=== PATIENT | female | born 1955 | race Caucasian/White ===

== ENCOUNTER → 2018-07-27 14:43 | Outpatient (CLI) | payer BC, SELFPAY ==
[2018-07-27 13:12] VITALS: BMI 36.6
[2018-07-27 18:04] LABS: Chlamydia Trachomatis by PCR POSITIVE (Negative); Neisserai gonorrhoeae by PCR Negative (Negative); Probe Check PASS
== END ==
PROVIDERS: Family Provider Internal Medicine; PCP Internal Medicine; Referring Provider Nurse Practitioner Women's Health; Visit Provider Nurse Practitioner Women's Health
DX: Z20.2 Contact with and (suspected) exposure to infections with a predominantly sexual mode of transmission (principal)
CPT/HCPCS: 87491; 87591

== ENCOUNTER → 2018-08-24 18:21 | Outpatient (CLI) | payer BC, SELFPAY ==
[2018-08-24 10:01] VITALS: BMI 36.6
[2018-08-24 21:34] LABS: Chlamydia Trachomatis by PCR Negative (Negative); Neisserai gonorrhoeae by PCR Negative (Negative); Probe Check PASS; Sample Adequacy Control PASS; Specimen Processing Control PASS
== END ==
PROVIDERS: Family Provider Internal Medicine; PCP Internal Medicine; Referring Provider Nurse Practitioner Women's Health; Visit Provider Nurse Practitioner Women's Health
DX: A74.9 Chlamydial infection, unspecified (principal)
CPT/HCPCS: 87491; 87591

== ENCOUNTER → 2018-08-31 07:00 | Outpatient (CLI) | payer BC, SELFPAY ==
[2018-08-24 10:01] VITALS: BMI 36.6
--- NOTE | 2018-08-31 07:00 | BI_ITS ---
MAMMOGRAPHY - BILATERAL SCREENING REASON FOR EXAM: Female, 63 years old. Routine annual screening examination. PERTINENT HISTORY: Mother with breast cancer. TECHNIQUE: Digital bilateral breast fatoumata (3D mammographic acquisition) in the CC and MLO projections. 2-D mediolateral oblique (MLO) and craniocaudad (CC) views of both breasts were obtained. CAD: Full Field Digital Mammography with Computer Added Detection was performed. COMPARISON: Comparison is made with prior examination dated April 15, 2017 and November 27, 2015. FINDINGS: Breast Composition: There are scattered areas of fibroglandular density. There are no dominant masses or suspicious calcifications. Stable appearance of the small bilateral axillary lymph nodes. No other significant abnormalities are identified. There has been no significant change since the prior study. BI/SCREEN MAMM (CAD) W/FATOUMATA BILAT IMPRESSION: Stable bilateral screening mammogram. Yearly follow-up mammogram recommended. (A) ASSESSMENT CATEGORY: BIRADS Category 2: Benign. A letter regarding these results will be sent to the patient by the facility within 30 days. Approximately 10% of breast cancers are not detected by mammography. A normal mammogram should not delay biopsy of a clinically suspicious abnormality. [id number] Electronically Signed: Edy Meza MD at 9:49 EST , Service support ,
== END ==
PROVIDERS: Family Provider Internal Medicine; PCP Internal Medicine; Referring Provider Nurse Practitioner Women's Health; Visit Provider Nurse Practitioner Women's Health
DX: Z12.31 Encounter for screening mammogram for malignant neoplasm of breast (principal); Z80.3 Family history of malignant neoplasm of breast
CPT/HCPCS: 77063; 77067

== ENCOUNTER → 2020-11-30 07:55 | Outpatient (CLI) | payer OTHER, SELFPAY ==
[2018-08-24 10:01] VITALS: BMI 36.6
--- NOTE | 2020-11-30 08:08 | BI_ITS ---
MAMMOGRAPHY - BILATERAL SCREENING 3-D TOMOSYNTHESIS REASON FOR EXAM: Female, 65 years old. Routine screening PERTINENT HISTORY: Mother with breast cancer.. TECHNIQUE: 2-D mammograms and 3-D Tomosynthesis of the breast (s) were performed. CAD was performed. COMPARISON: 08/31/18 FINDINGS: The breast composition is composed of scattered fibroglandular density. Scattered benign calcifications are seen. No dense spiculated masses or suspicious microcalcifications are identified. No architectural distortion is identified. There is no skin thickening or retraction. There has been no significant change since the prior study. BI/SCRN MAMM (CAD)W/FATOUMATA BILAT IMPRESSION: No mammographic signs of malignancy. Routine yearly mammograms recommended. ASSESSMENT CATEGORY: BIRADS Category 2: Benign. A letter regarding these results will be sent to the patient by the facility within 30 days. FOLLOW UP RECOMMENDATION: Yearly follow up mammogram recommended. (A) Approximately 10% of breast cancers are not detected by mammography. A normal mammogram should not delay biopsy of a clinically suspicious abnormality. Electronically Signed: Maycol Boswell MD at 9:02 EDT , Service support ,
== END ==
PROVIDERS: PCP Internal Medicine; Referring Provider Nurse Practitioner Women's Health; Visit Provider Nurse Practitioner Women's Health
DX: Z12.31 Encounter for screening mammogram for malignant neoplasm of breast (principal)
CPT/HCPCS: 77063; 77067

== ENCOUNTER → 2020-12-18 12:13 | Outpatient (CLI) | payer OTHER, SELFPAY ==
--- NOTE | 2020-12-18 08:30 | CER_PTH ---
PATIENT: DIEGO WARE LOC: [facility] U#:[id number] AGE/SX: 69/F ROOM: RE12/18/[address]: DEMETRI Padron : 1955 BED: DIS: SPEC #: [id number] RECD: 12/18/20 12:10 STATUS: BHUPINDER BHUPINDER #: [id number] DOC: 12/18/20 08:[address]: Trinity Banerjee NP DEPT: SURGICAL PATHOLOGY RECD BY: Lisa Gatica ENTERED: 12/18/20 13:20 SP TYPE: CERV OTHR DR: Dr. Clarissa Alonzo MD Tissues: Uterine cervix, NOS Procedures: Surgery Specimen Level IV HEADER OPERATION: Polypectomy PRE-OP DIAGNOSIS: Cervical polyp TISSUE SUBMITTED: Cervical polyp MICROSCOPIC DIAGNOSIS Cervical polyp, biopsy: A minute fragment of benign endocervical mucosa, blood and mucous. See comment. JUAN:avi 12/19/2020 COMMENT Definite polyp is not identified. The specimen predominantly consists of blood and mucous. MICROSCOPIC DESCRIPTION Slides are reviewed. GROSS DESCRIPTION Received is one container labeled with the patient's name and not further designated. The specimen consists of multiple fragments of hemorrhagic mucoid tissue that in aggregate measure 0.9 x 0.9 x 0.2 cm. The specimen is totally submitted in one cassette. / SJ:avi 12/18/20 TC:5 CPT: 79441
[2020-12-18 08:36] VITALS: BMI 34.2
[2020-12-20 12:18] LABS: HPV APTIMA, High Risk Negative (Negative)
== END ==
PROVIDERS: PCP Internal Medicine; Referring Provider Nurse Practitioner Women's Health; Visit Provider Nurse Practitioner Women's Health
DX: N84.1 Polyp of cervix uteri (principal); Z12.4 Encounter for screening for malignant neoplasm of cervix
CPT/HCPCS: 87624; 88175; 88305; G0145

== ENCOUNTER 2021-08-28 12:12 | Outpatient (CLI) | payer BC, SELFPAY ==
--- NOTE | 2021-08-28 | EMB_PTH ---
PATIENT: DIEGO WARE LOC: [facility]#:[id number] AGE/SX: 66/F ROOM: RE08/28/[address]: DEMETRI Padron : 1955 BED: DIS: 08/28/2021 SPEC #: [id number] RECD: 08/28/21 12:09 STATUS: BHUPINDER BHUPINDER #: [id number] ODC: 08/28/21 00:[address]: Trinity Banerjee NP DEPT: SURGICAL PATHOLOGY RECD BY: Sebastien Sifuentes ENTERED: 08/28/21 13:00 SP TYPE: ENDOM BX/C ARYAN DR: Dr. Clarissa Alonzo MD Tissues: Endometrium, NOS Procedures: Surgery Specimen Level IV HEADER OPERATION: Endometrial biopsy PRE-OP DIAGNOSIS: PMB TISSUE SUBMITTED: Endometrial biopsy MICROSCOPIC DIAGNOSIS Endometrial biopsy: Strips of benign endometrial epithelium and superficial fragments of benign endometrial tissue, blood and mucous. See comment. SJ:avi 08/29/2021 COMMENT Clinical correlation and appropriate follow up are necessary. MICROSCOPIC DESCRIPTION Slides are reviewed. GROSS DESCRIPTION Received is one container labeled with the patient's name and not further designated. The specimen consists of multiple irregular fragments of pink-aguirre soft tissue that in aggregate measure 1 x 0.2 x 0.1 cm. The specimen is totally submitted in one cassette. / AM:avi 08/28/2021 TC:5 CPT: 10327
== END 2021-08-28 23:59 | disposition home or self-care (01) ==
LOC: LABSPEC 12:14
PROVIDERS: PCP Internal Medicine; Visit Provider Nurse Practitioner Women's Health
DX: N95.0 Postmenopausal bleeding (principal)
CPT/HCPCS: 88305

== ENCOUNTER → 2021-12-02 | Outpatient (CLI) | payer BC, SELFPAY ==
--- NOTE | 2021-12-02 08:31 | BI_ITS ---
MAMMOGRAPHY - BILATERAL SCREENING REASON FOR EXAM: Female, 66 years old. Routine annual screening examination. PERTINENT HISTORY: Mother with breast cancer. TECHNIQUE: Digital bilateral breast fatoumata (3D mammographic acquisition) in the CC and MLO projections. 2-D mediolateral oblique (MLO) and craniocaudad (CC) views of both breasts were obtained. CAD: Full Field Digital Mammography with Computer Added Detection was performed. COMPARISON: Mammogram from 11/30/2020, 08/31/2018, 04/15/2017. FINDINGS: Breast Composition: There are scattered areas of fibroglandular density. There are no dominant masses or suspicious calcifications. Stable small left axillary nodes. No other significant abnormalities are identified. BI/SCRN MAMM (CAD)W/FATOUMATA BILAT IMPRESSION: Stable bilateral screening mammogram. Yearly follow-up mammogram recommended. (A) ASSESSMENT CATEGORY: BIRADS Category 2: Benign. A letter regarding these results will be sent to the patient by the facility within 30 days. BR2 Approximately 10% of breast cancers are not detected by mammography. A normal mammogram should not delay biopsy of a clinically suspicious abnormality. [id number] Electronically Signed: Otto Carrington, at 9:06 EDT ,
== END | disposition home or self-care (01) ==
LOC: OPBI 08:30
PROVIDERS: PCP Internal Medicine; Visit Provider Nurse Practitioner Women's Health
DX: Z12.31 Encounter for screening mammogram for malignant neoplasm of breast (principal); Z80.3 Family history of malignant neoplasm of breast
CPT/HCPCS: 77063; 77067

== ENCOUNTER → 2023-05-05 | Outpatient (CLI) | payer MEDICARE, SELFPAY ==
--- NOTE | 2023-05-05 07:45 | BI_ITS ---
MAMMOGRAPHY - BILATERAL SCREENING REASON FOR EXAM: Female, 67 years old. Routine annual screening examination. PERTINENT HISTORY: Mother with breast cancer. TECHNIQUE: Digital bilateral breast fatoumata (3D mammographic acquisition) in the CC and MLO projections. 2-D mediolateral oblique (MLO) and craniocaudad (CC) views of both breasts were obtained. CAD: Full Field Digital Mammography with Computer Added Detection was performed. COMPARISON: Comparison is made with prior study dated December 02, 2021 and November 30, 2020. FINDINGS: Breast Composition: There are scattered areas of fibroglandular density. There are no dominant masses or suspicious calcifications. No other significant abnormalities are identified. There has been no significant change since the prior study. BI/SCRN MAMM (CAD)W/FATOUMATA BILAT IMPRESSION: Stable bilateral screening mammogram. Yearly follow-up mammogram recommended. (A) ASSESSMENT CATEGORY: BIRADS Category 1: Negative. A letter regarding these results will be sent to the patient by the facility within 30 days. Approximately 10% of breast cancers are not detected by mammography. A normal mammogram should not delay biopsy of a clinically suspicious abnormality. [id number] Electronically Signed: Edy Meza MD at 9:56 EDT ,
== END | disposition home or self-care (01) ==
LOC: OPBI 07:44
PROVIDERS: PCP Internal Medicine; Referring Provider Internal Medicine; Visit Provider Internal Medicine
DX: Z12.31 Encounter for screening mammogram for malignant neoplasm of breast (principal); Z80.3 Family history of malignant neoplasm of breast
CPT/HCPCS: 77063; 77067

== ENCOUNTER → 2024-05-09 | Outpatient (CLI) | payer MEDICARE, SELFPAY ==
--- NOTE | 2024-05-09 10:09 | BI_ITS ---
MAMMOGRAPHY - BILATERAL SCREENING REASON FOR EXAM: Female, 68 years old. Routine annual screening examination. PERTINENT HISTORY: Mother with breast cancer. TECHNIQUE: Digital bilateral breast fatoumata (3D mammographic acquisition) in the CC and MLO projections. 2-D mediolateral oblique (MLO) and craniocaudad (CC) views of both breasts were obtained. CAD: Full Field Digital Mammography with Computer Added Detection was performed. COMPARISON: Comparison is made with prior study May 05, 2023 and December 02, 2021. FINDINGS: Breast Composition: There are scattered areas of fibroglandular density. There are no dominant masses or suspicious calcifications. Stable small left axillary lymph nodes. No other significant abnormalities are identified. There has been no significant change since the prior study. BI/SCRN MAMM (CAD)W/FATOUMATA BILAT IMPRESSION: Stable bilateral screening mammogram. Yearly follow-up mammogram recommended. (A) ASSESSMENT CATEGORY: BIRADS Category 2: Benign. A letter regarding these results will be sent to the patient by the facility within 30 days. Approximately 10% of breast cancers are not detected by mammography. A normal mammogram should not delay biopsy of a clinically suspicious abnormality. [id number] Electronically Signed: Edy Meza MD at 13:46 EDT ,
--- OUTSIDE RECORDS SUMMARY | 2024-05-09 11:23 | XMS RPT_ITS | CCD ---
Author Organization [facility] Care Team Providers Care Healthcare Customer Service Name Role Phone Sharon Anders Unavailable Unavailable [place] HASHER MACHINE OPERATOR, Trinity Ohara Unavailable [place] HASHER MACHINE OPERATOR, Trinity S Unavailable [phone] Dayanara Alonzo MD Primary Care Provider Dayanara Alonzo MD Primary Care Provider DANO DAYANARA Tracee Primary Care Unavailable TALAMPAS, DAYANARA D Referring Unavailable TALAMPAS, DAYANARA D Primary Care Unavailable DANO DAYANARA D Attending Unavailable TALAMPAS, DAYANARA D Primary Care Unavailable JUANFREDERICK Referring Unavailable JUAN FREDERICK Attending Unavailable TALAMPAS, DAYANARA D Primary Care Unavailable Allergies Allergy Classification Reported Allergen(s) Allergy Type Date of Onset Reaction(s) Facility (6 sources) POISON LOUANN EXTRACT; Translations: [POISON LOUANN] Drug Allergy 12-10-2005 [facility] Work Phone: Medications Current Medications Medication Drug Class(es) Dates Sig (Normalized) Sig (Original) CPAP (5 sources) Start: 01-31-2021 CPAP Indications: PHILIPPE on CPAP New CPAP @ 8 cm of water with humidification per current order. Mask (per patient preference) optional chin strap (if indicated) , filters, tubing, humidifier and lifetime supplies. G47.33 PHILIPPE on CPAP 1 Device 01/31/2021 Active Start: 01-31-2021 CPAP Indicatio ns: PHILIPPE on CPAP New CPAP @ 8 cm of water with humidification per current order. Mask (per patient preference) optional chin strap (if indicated) , filters, tubing, humidifier and lifetime supplies. G47.33 PHILIPPE on CPAP 1 Device 0 01/31/2021 Active Comment on above: New CPAP @ 8 cm of w ater with humidification per current order. Mask (per patient preference) optional chin strap (if indicated) , filters, tubing, humidifier and lifetime supplies. G47.33 PHILIPPE on CPAP estrogens, conjugated (jail) 0.625 mg/ml vaginal cream (5 sources) Estrogen conjugated estro gens (PREMARIN) vaginal cream Use vaginally two times a week. Active Comment on above: Use vaginally two ti mes a week. Completed/Discontinued Medications Medication Drug Class(es) Dates Sig (Normalized) Sig (Original) Lutein (2 sources) End: 05-01-2023 LUTEIN ORAL Take 25 mg by mouth. 0 05/01/2023 Discontinued LUTEIN ORAL Take 25 mg by mouth. 0 Active Comment on above: Take 25 mg by mouth. Drug Treatment Unknown - unk nown (2 sources) No information a vailable. Problems Active Problems Problem Classification Problem Date Documented Date Episodic/Chronic Other circulatory disease (1 source) Elevated blood-pressure reading without diagnosis of hypertension; Translations: [Elevated blood-pressure reading, without diagnosis of hypertension] 04-06-2024 Episodic Other circulatory disease (1 source) Elevated blood-pressure reading, without diagnosis of hypertension; Translations: [Elevated BP without diagnosis of hypertension] Onset: 04-13-2024 Episodic Other nutritional; endocrine; and metabolic disorders (6 sources) Obese class I; Translations: [Obesity, unspecified] Onset: 05-01-2023 05-01-2023 Chronic Other nutritional; endocrine; and metabolic disorders (1 source) Obesity, unspecified; Translations: [Obesity, Class I, BMI 30-34.9] Onset: 05-01-2023 Chronic Other screening for suspected conditions (not mental disorders or infectious disease) (13 sources) Patient encounter status; Translations: [Encounter for screening mammogram for malignant neoplasm of breast] Onset: 05-04-2023 01-14-2023 Episodic Residual codes; unclassified (7 sources) Obstructive sleep apnea syndrome; Translations: [Obstructive sleep apnea (adult) (pediatric)] 01-11-2019 Chronic Residual codes; unclassified (1 source) Obstructive sleep apnea (adult) (pediatric); Translations: [PHILIPPE on CPAP] Onset: 01-11-2019 Chronic Residual codes; unclassified (2 sources) Menopause present; Translations: [Asymptomatic menopausal state] 05-01-2023 Episodic Screening and history of mental health and substance abuse codes (2 sources) Encounter for screening examination for other mental health and behavioral disorders; Translations: [Encounter for screening for depression] Onset: 04-06-2024 Episodic Unclassified (5 sources) Screening mammography ; Translations: [Encounter for screening mammogram for malignant neoplasm of breast] Onset: 03-02-2017 03-02-2017 Unclassified (4 sources) Gynecologic examination ; Translations: [Encounter for gynecological examination (general) (routine) without abnormal findings] Onset: 04-15-2017 04-15-2017 Unclassified (1 source) Obesity, Class I, BMI 30-34.9; Translations: [Obesity, Class I, BMI 30-34.9] Onset: 05-01-2023 Past or Other Problems Problem Classification Problem Date Documented Da te Episodic/Chronic Allergic reactions (1 source) Radiation-induced dermatosis; Translations: [Other skin changes due to chronic exposure to nonionizing radiation] Onset: 06-06-2008 Resolved: 09-12-2014 09-12-2014 Episodic Neoplasms of unspecified nature or uncertain behavior (1 source) Neoplasm of uncertain behavior of skin; Translations: [Neoplasm of uncertain behavior of skin] Onset: 06-06-2008 Resolved: 09-12-2014 09-12-2014 Episodic Other infections; including parasitic (5 sources) Personal history of other infectious and parasitic diseases; Translations: [Personal history of COVID-19] Onset: 05-28-2020 01-04-2021 Episodic Other non-epithelial cancer of skin (2 sources) History of malignant neoplasm of skin; Translations: [Personal history of other malignant neoplasm of skin] Onset: 06-06-2008 Resolved: 09-12-2014 09-12-2014 Episodic Other skin disorders (1 source) Actinic keratosis; Translations: [Actinic keratosis] Onset: 06-06-2008 Resolved: 09-12-2014 09-12-2014 Episodic Other skin disorders (1 source) Seborrheic keratosis; Translations: [Other seborrheic keratosis] Onset: 06-06-2008 Resolved: 09-12-2014 09-12-2014 Episodic Other skin disorders (1 source) Scar conditions and fibrosis of skin; Translations: [Scar conditions and fibrosis of skin] Onset: 06-06-2008 Resolved: 09-12-2014 09-12-2014 Episodic Residual codes; unclassified (1 source) Asymptomatic menopausal state; Translations: [Asymptomatic menopause] Onset: 05-04-2023 Episodic Results Test Name Value Interpretation Reference Range Facility Comprehensive metabolic 2000 panelon 04-13-2024 Albumin [Mass/Vol] 4.0 g/dL Normal 3.9-4.9 [facility] Comment on above: Order Comment: Speci men Type: BLOOD SPECIMEN Ordering Facility: [facility] Address: [address] [place] [address] Performed By: #### 2 4331-1, #### [facility] CLIA [id number] [address] [place] [address] [place] ALP [Catalytic activity/Vol] 93 U/L Normal 34-123 [facility] Comment on above: Order Comment: Speci men Type: BLOOD SPECIMEN Ordering Facility: [facility] Address: [address] [place] [address] Performed By: #### 2 4331-1, #### [facility] CLIA [id number] [address] [place] [address] [place] ALT [Catalytic activity/Vol] 11 U/L Normal 7-38 [facility] Comment on above: Order Comment: Speci men Type: BLOOD SPECIMEN Ordering Facility: [facility] Address: [address] [place] [address] Performed By: #### 2 4331-1, #### [facility] CLIA [id number] [address] [place], [place] [id number] [place] Anion gap [Moles/Vol] 10 mmol/L Normal 8-15 [facility] Comment on above: Order Comment: Speci men Type: BLOOD SPECIMEN Ordering Facility: [facility] Address: [address] [place] [address] Performed By: #### 2 4331-1, 08336-7 #### [facility] CLIA [id number] [address] [place], [place] [address] [place] AST [Catalytic activity/Vol] 17 U/L Normal 13-35 [facility] Comment on above: Order Comment: Speci men Type: BLOOD SPECIMEN Ordering Facility: [facility] Address: [address] [place] [address] Performed By: #### 2 4331-1, #### [facility] CLIA [id number] [address] [place] [address] [place] Bilirubin [Mass/Vol] 0.3 mg/dL Normal 0.2-1.3 [facility] Comment on above: Order Comment: Speci men Type: BLOOD SPECIMEN Ordering Facility: [facility] Address: [address] [place] [address] Performed By: #### 2 4331-1, 33575-8 #### [facility] CLIA [id number] [address] [place] [address] [place] Calcium [Mass/Vol] 9.9 mg/dL Normal 8.5-10.2 [facility] Comment on above: Order Comment: Speci men Type: BLOOD SPECIMEN Ordering Facility: [facility] Address: [address] [place] [address] Performed By: #### 2 4331-1, #### [facility] CLIA [id number] [address] [place] [address] [place] Chloride [Moles/Vol] 106 mmol/L Normal 98-107 [facility] Comment on above: Order Comment: Speci men Type: BLOOD SPECIMEN Ordering Facility: [facility] Address: [address] [place] [address] Performed By: #### 2 4331-1, #### [facility] CLIA [id number] [address] [place] [address] [place] CO2 [Moles/Vol] 25 mmol/L Normal 22-30 [facility] Comment on above: Order Comment: Speci men Type: BLOOD SPECIMEN Ordering Facility: [facility] Address: [address] [place] [address] Performed By: #### 2 4331-1, 26507-5 #### [facility] CLIA [id number] [address] [place] [address] [place] Creatinine [Mass/Vol] 0.88 mg/dL Normal 0.58-0.96 [facility] Comment on above: Order Comment: Speci men Type: BLOOD SPECIMEN Ordering Facility: [facility] Address: [address] [place] [address] Performed By: #### 2 4331-1, 27302-2 #### [facility] CLIA [id number] [address] [place] [address] [place] Creatinine and Glomerular filtration rate.predicted panel (S/P/Bld) 72 mL/min/1.73m??? Normal >=60 [facility] Comment on above: Order Comment: Marveli men Type: BLOOD SPECIMEN Ordering Facility: [facility] Address: [address] [place] [address] Result Comment: Angella mated Glomerular Filtration Rate (eGFR) is calculated using the 2020 CKD-EPI creatinine equation. This equation utilizes serum creatinine, sex, and age as parameters. The creatinine assay has traceable calibration to isotope dilution-mass spectrometry. Refer to KDIGO guidelines for clinical interpretation. In patients with unstable renal function, e.g. those with acute kidney injury, the eGFR may not accurately reflect actual GFR. Performed By: #### 2 4331-1, 32457-3 #### [facility] CLIA [id number] [address] [place] [address] [place] Glucose [Mass/Vol] 80 mg/dL Normal 74-99 [facility] Comment on above: Order Comment: Marveli men Type: BLOOD SPECIMEN Ordering Facility: [facility] Address: [address] [place] [address] Result Comment: The [place] Diabetes [employer] (ADA) provides guidance for cutoff values for fasting glucose and random glucose. The ADA defines fasting as no caloric intake for at least 8 hours. Fasting plasma glucose results between 100 to 125 mg/dL indicate increased risk for diabetes (prediabetes). Fasting plasma glucose results greater than or equal to 126 mg/dL meet the criteria for diagnosis of diabetes. In the absence of unequivocal hyperglycemia, results should be confirmed by repeat testing. In a patient with classic symptoms of hyperglycemia or hyperglycemic crisis, random plasma glucose results greater than or equal to 200 mg/dL meet the criteria for diagnosis of diabetes. Reference: Standards of Medical Care in Diabetes 2016, [place] [employer]. Diabetes Care. 2016.39(Suppl 1). Performed By: #### 2 4331-, 99916-9 #### [facility] CLIA [id number] [address] [place] [address] [place] Potassium [Moles/Vol] 3.9 mmol/L Normal 3.7-5.1 [facility] Comment on above: Order Comment: Speci men Type: BLOOD SPECIMEN Ordering Facility: [facility] Address: [address] [place] [address] Performed By: #### 2 433-, 87437-5 #### [facility] CLIA [id number] [address] [place] [address] [place] Protein [Mass/Vol] 6.6 g/dL Normal 6.3-8.0 [facility] Comment on above: Order Comment: Marveli niya Type: BLOOD SPECIMEN Ordering Facility: [facility] Address: [address] [place] [address] Performed By: #### 2 433-, #### [facility] CLIA [id number] [address] [place] [address] [place] Sodium [Moles/Vol] 141 mmol/L Normal 136-144 [facility] Comment on above: Order Comment: Marevli men Type: BLOOD SPECIMEN Ordering Facility: [facility] Address: [address] [place] [address] Performed By: #### 2 4331-, #### [facility] CLIA [id number] [address] [place] [address] [place] Urea nitrogen [Mass/Vol] 21 mg/dL Normal 7-21 [facility] Comment on above: Order Comment: Speci men Type: BLOOD SPECIMEN Ordering Facility: [facility] Address: [address] [place] [address] Performed By: #### 2 4331-1, 61509-1 #### [facility] CLIA [id number] [address] [place] [address] [place] Lipid 1996 panelon 4 Cholesterol [Mass/Vol] 201 mg/dL High <200 [facility] Comment on above: Order Comment: Speci men Type: BLOOD SPECIMEN Ordering Facility: [facility] Address: [address] [place] [address] Result Comment: <200 mg/dL, Desirable 200-239 mg/dL, Borderline high >239 mg/dL, High Performed By: #### 2 4331-1, 69219-6 #### [facility] CLIA [id number] [address] [place] [address] [place] Cholesterol in HDL [Mass/Vol] 41 mg/dL Normal >39 [facility] Comment on above: Order Comment: Speci men Type: BLOOD SPECIMEN Ordering Facility: [facility] Address: [address] [place] [address] Result Comment: 40-5 9 mg/dL, Acceptable >59 mg/dL, High: Negative risk factor for coronary heart disease <40 mg/dL, Low: Positive risk factor for coronary heart disease Performed By: #### 2 4331-1, 76587-1 #### [facility] CLIA [id number] [address] [place] [address] [place] Cholesterol in LDL [Mass/Vol] 141 mg/dL High <100 [facility] Comment on above: Order Comment: Speci men Type: BLOOD SPECIMEN Ordering Facility: [facility] Address: [address] [place] [address] Result Comment: <100 mg/dL, Optimal 100-129 mg/dL, Near optimal/above optimal 130-159 mg/dL, Borderline high 160-189 mg/dL, High >189 mg/dL, Very high Secondary prevention optimal LDL Cholesterol levels are recommended to be < 70 mg/dL Performed By: #### 2 4331-1, 53421-8 #### [facility] CLIA [id number] [address] [place] [address] [place] Cholesterol in LDL/Cholesterol in HDL [Mass ratio] 3.44 {ratio} High <2.54 [facility] Comment on above: Order Comment: Amina núñez Type: BLOOD SPECIMEN Ordering Facility: [facility] Address: [address] [place] [address] Result Comment: Refe rence: 1. National Cholesterol Education Program ATP III Guideline At-A-Glance Quick Desk Reference: National Heart, Lung, and Blood [place]. National Institutes of Health. 2001: NIH Publication No. 01-3305. 2. An International Atherosclerosis Society position paper: global recommendations for the management of dyslipidemia: executive summary, Atherosclerosis. 2014: 232(2):410-413. Performed By: #### 2 4331-1, 16137-9 #### [facility] CLIA [id number] [address] [place] [address] [place] Cholesterol in VLDL [Mass/Vol] 19 mg/dL Normal <30 [facility] Comment on above: Order Comment: Amina núñez Type: BLOOD SPECIMEN Ordering Facility: [facility] Address: [address] [place] [address] Performed By: #### 2 4331-1, 12143-3 #### [facility] CLIA [id number] [address] [place] [address] [place] Cholesterol non HDL [Mass/Vol] 160 mg/dL High <130 [facility] Comment on above: Order Comment: Amina núñez Type: BLOOD SPECIMEN Ordering Facility: [facility] Address: [address] [place] [address] Result Comment: <130 mg/dL, Optimal 130-159 mg/dL, Near optimal/above optimal 160-189 mg/dL, Borderline high 190-219 mg/dL, High >219 mg/dL, Very high Secondary prevention optimal non HDL Cholesterol levels are recommended to be <100 mg/dL Performed By: #### 2 4331-1, #### [facility] CLIA [id number] [address] [place] [address] [place] Cholesterol.total/ Cholesterol in HDL [Mass ratio] 4.90 {ratio} Normal <5.10 [facility] Comment on above: Order Comment: Amina núñez Type: BLOOD SPECIMEN Ordering Facility: [facility] Address: [address] [place] [address] Performed By: #### 2 4331-1, #### [facility] CLIA [id number] [address] [place] [address] [place] FASTING TIME 12 hrs Normal [facility] Comment on above: Order Comment: Amina núñez Type: BLOOD SPECIMEN Ordering Facility: [facility] Address: [address] [place] [address] Performed By: #### 2 4331-1, #### [facility] CLIA [id number] [address] [place] [address] [place] Triglyceride [Mass/Vol] 97 mg/dL Normal <150 [facility] Comment on above: Order Comment: Amina núñez Type: BLOOD SPECIMEN Ordering Facility: [facility] Address: [address] [place] [address] Result Comment: <150 mg/dL, Normal 150-199 mg/dL, Borderline high 200-499 mg/dL, High >499 mg/dL, Very high Performed By: #### 2 4331-1, #### [facility] CLIA [id number] [address] [place] [address] [place] CNOVon 04-06-2024 CNOV Office Visit (INTMWS) DIEGO WARE ([id number]) 1955 F Date Time Provider Department 04/06/24 2:00 PM DAYANARA ALONZO IN[facility] During your visit today, we recorded the following information about you: Pulse Respiration Blood pressure Weight 72/minute 14/minute 138/70 90.2 kg Dayanara Alonzo MD 04/06/2024 3:11 PM Signed This note was created using [employer]. Subjective Diego Ware is a 68 year old female. Patient presents with: Follow Up SUBJECTIVE: Diego Ware is a 68 year old year old lady here today for follow up appointment for review of medical conditions. The patient is a 68-year-old female with a history of PHILIPPE, presenting for a follow-up visit. The patient has not seen her sleep specialist since her initial diagnosis of PHILIPPE, but continues to use her CPAP machine. She recently acquired a new headset but is interested in exploring the Inspire device due to plans to move to a location without electricity. She reports difficulty with her current CPAP headgear, noting that it shifts during sleep, causing leaks and waking her up. She has tried multiple headgear options without success and is considering alternative treatments. She denies any current symptoms of depression, anxiety, or suicidal ideation. She is active, walking 2 miles daily, biking, and kayaking. She has joined [employer] and is working on weight loss, with a recent weight of 198 lbs. She denies any symptoms of cephalalgia, blurry vision, dyspnea, or chest pain. She has a family history of cardiac issues and HTN. She is also working on advanced directives and plans to designate her as her healthcare power of well testing operator. She sees a international specialist biannually for routine checks. She is due for a colonoscopy in February 2026. Does not have HCDPOA or LW. is her surrogate decision maker. Dermatology--Dr. Milton Walker PAST MEDICAL HISTORY Diagnosis Date PHILIPPE on CPAP Dr. 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 Mask (per patient preference) optional chin strap (if indicated) , filters, tubing, humidifier and lifetime supplies. G47.33 PHILIPPE on CPAP conjugated estrogens (PREMARIN) vaginal cream Use vaginally two times a week. No current facility-administere d medications for this visit. Review of Systems Objective BP 140/68 (BP Site: Left Arm, BP Position: Sitting, BP Cuff Size: Large Adult) Pulse 72 Resp 14 Wt 90.2 kg (198 lb 12.8 oz) LMP 11/10/2006 BMI 34.39 kg/m? Last 5 Encounter Wt Readings: Date: Wt: 04/06/2024 90.2 kg (198 lb 12.8 oz) 05/01/2023 90.7 kg (200 lb) 01/07/2022 99.8 kg (220 lb) 01/04/2021 93.4 kg (206 lb) 08/11/2017 83 kg (183 lb) No waist measurement recorded Estimated body mass index is 34.39 kg/m? as calculated from the following: Height as of 05/01/23: 161.9 cm (5' 3.75 ). Weight as of this encounter: 90.2 kg (198 lb 12.8 oz). Last 5 Encounter BP Readings: Date: BP: 04/06/2024 140/68 05/01/2023 128/80 01/07/2022 136/84 01/04/2021 132/72 08/11/2017 130/72 Physical Exam Vitals reviewed. Constitutional: Appearance: Normal appearance. She is well-developed. HENT: Head: Normocephalic and atraumatic. Right Ear: Tympanic membrane, ear canal and external ear normal. Left Ear: Tympanic membrane, ear canal and external ear normal. Nose: Nose normal. Mouth/Throat: Mouth: Mucous membranes are moist. Eyes: Conjunctiva/sclera: Conjunctivae normal. Pupils: Pupils are equal, round, and reactive to light. Neck: Thyroid: No thyromegaly. Vascular: No carotid bruit. Cardiovascular: Rate and Rhythm: Normal rate and regular rhythm. Pulses: Normal pulses. Heart sounds: Normal heart sounds. No murmur heard. No friction rub. No gallop. Pulmonary: Effort: Pulmonary effort is normal. Breath sounds: Normal breath sounds. Abdominal: General: Bowel sounds are normal. There is no distension. Palpations: Abdomen is soft. There is no mass. Tenderness: There is no abdominal tenderness. Musculoskeletal: General: No deformity. Normal range of motion. Right lower leg: No edema. Left lower leg: No edema. Lymphadenopathy: Cervical: No cervical adenopathy. Skin: General: Skin is warm and dry. Coloration: Skin is not jaundiced or pale. Findings: No rash. Neurological: General: No focal deficit present. Mental Status: She is alert and oriented to person, place, and time. Cranial Nerves: No cranial nerve deficit. Sensory: No sensory deficit. Motor: No abnormal muscle tone. Coordination: Coordination normal. Deep Tendon Reflexes: Reflexes normal. Psychiatric: (more content not included)... Normal [facility] DIEGO W[facility] ([id number]) 1955 F Date Time Provider Department 05/05/23 [facility] During your visit today, we recorded the following information about you: Frederick Martinez APRN.[facility] 05/05/2023 2:46 PM Signed Bone density showed osteopenia so the start of bone weakening but not severe enough progressed to be osteoporosis. To keep bones strong aim to take around 1200 mg of Calcium per day or drink two glasses of milk. If you eat a lot of calcium dante foods, but don't drink milk, you may decrease to 600 mg daily. Try to do strength training (light weights) exercise at least 2-3 times weekly. Francine Bruno LPN 05/05/2023 3:02 PM Signed LEFT MESSAGE FOR PATIENT TO CALL OFFICE. Odalys Rockwell LPN 05/05/2023 6:43 PM Signed Patient aware of results and provider recommendations for follow up. Odalys Rockwell LPN Allergies As of Date: 05/05/2023 Noted Allergy Reaction POISON LOUANN 12/10/2005 Date Reviewed: 05/01/2023 Reviewed by: Frederick Martinez APRN.[employer] - Fully Assessed Reason for Visit: Results [95] Prescriptions as of 05/05/2023 - CPAP New CPAP @ 8 cm of water with humidification per current order. Mask (per patient preference) optional chin strap (if indicated) , filters, tubing, humidifier and lifetime supplies. G47.33 PHILIPPE on CPAP - conjugated estrogens (PREMARIN) vaginal cream Use vaginally two times a week. Problem List As Of Date 05/05/2023 Noted Resolved Neoplasm of uncertain behavior of skin [D48.5] 06/06/2008 09/12/2014 Actinic keratosis [L57.0] 06/06/2008 09/12/2014 Other chronic dermatitis due to solar radiation*06/06/2008 09/12/2014 Other seborrheic keratosis [L82.1] 06/06/2008 09/12/2014 Scar condition and fibrosis of skin [L90.5] 06/06/2008 09/12/2014 H/O BCC'S////PERS HX SKIN MALIGNANCY NEC [Z85.8*06/06/2008 09/12/2014 H/O BCC'S BACK///MALIG NEOPLASM SKIN TRUNK [173*08/02/2008 09/12/2014 PHILIPPE on CPAP [G47.33] Personal history of COVID-19 [Z86.16] 05/28/2020 Obesity, Class I, BMI 30-34.9 [E66.9] 05/01/2023 Encounter Status:Closed by ODALYS ROCKWELL LPN on 05/05/23 [facility] BD DXA - AXIAL SKELETONon BD DXA - AXIAL SKELETON * * *Final Report* * * DATE OF EXAM: May 04 2023 1:15PM GUST[facility] 0804 - BD DXA - AXIAL SKELETON / PROCEDURE REASON: multiple diagnoses * * * * Physician Interpretation * * * * PROCEDURE: BD DXA - AXIAL SKELETON INDICATION: Screening for osteoporosis. Asymptomatic menopause TECHNIQUE: Low dose AP spine and hip images COMPARISON: July 25, 2013 LUMBAR SPINE: The bone mineral density from L1 through L4 is 0.6906 grams per square centimeter which yields a T-score of -1.3. There has been a 10.7% interval decrease in bone mineral density. LEFT HIP: The bone mineral density of the total region of the hip is 1.181 grams per square centimeter which yields a T-score of 2.0. There has been a 6.9% interval decrease in bone mineral density. LEFT FEMORAL NECK: The bone mineral density of the femoral neck is 0.987 grams per square centimeter which yields a T-score of 1.2. There has been a 4.5% interval decrease in bone mineral density. RIGHT HIP: The bone mineral density of the total region of the hip is 1.142 grams per square centimeter which yields a T-score of 1.6. RIGHT FEMORAL NECK: The bone mineral density of the femoral neck is 0.939 grams per square centimeter which yields a T-score of 0.8. 10-year Fracture Risk (FRAX): Major osteoporotic fracture risk 5.3% Hip fracture risk 0.1% IMPRESSION: Osteopenia in the lumbar spine. [facility] ORG. CLASSIFICATION OF BONE MASS CLASSIFICATION T-SCORE Normal Greater than -1 Low Bone Mass Between -1 and -2.5 (Osteopenia) Osteoporosis Less than or equal to -2.5 Special Education Itinerant Teacher: ANNELISE Transcribe Date/Time: May 04 2023 4:31P Dictated by : ANNELISE PARKER MD This examination was interpreted and the report reviewed and electronically signed by: ANNELISE PARKER MD on May 04 2023 5:05PM EST [id number] CN Normal [facility] DXA-AXIAL SKELETONon 023 [facility] CNOVon 05-01-2023 CNOV Office Visit (INTMWS) DIEGO WARE ([id number]) 1955 F Date Time Provider Department 05/01/23 10:40 AM FREDERICK MARTINEZ During your visit today, we recorded the following information about you: Pulse Blood pressure Weight Height 68/minute 128/80 90.7 kg 1.619 m Francine Bruno OUTSIDE MAINTENANCE WORKER 05/01/2023 10:39 AM Signed VISUAL ACUITY: Today's exam: Vision Correction? Glasses: RIGHT EYE: 20/20 LEFT EYE: 20/ 25 BOTH EYES: 20/20 Frederick Martinez APRN.BISQUE CLEANER 05/01/2023 11:29 AM Signed Diego Ware is a 67 year old female here for a Medicare wellness visit. Prior bone density in 2013. Overall feeling pretty great. Sleep apnea with CPAP, using nightly, benefiting. Medicare Health Risk Assessment General Health Overall pretty good. Exercise: Minutes/Day Walks 3.5 mils a morning 60-90 minutes a day Exercise: Days/Week Min 5-6 days Alcohol: Daily Use Not daily Alcohol: Drinks/Day Glass or 2 every other week Alcohol: 6 or more drinks no Feel off balance No, no falls Concerns: Teeth/Dentures no Concerns: Sexual function no Troubled by feelings no Frequency: Eating healthy diet Eating healthy ADLs requiring help no Safety precautions in home/vehicle Smoke alarms and wears seat belt Smoke, vape, chews tobacco no Difficulty hearing Hearing aides Difficulty seeing No, follows with ophthalmology Current Providers Specialists: I have reviewed specialist-related care of the patient in the medical record. Outside specialists seen: dentist and eye doctor Dermatology Medical/Family history review Reviewed and updated problem list, medical/surgical/fam mina/social history, medications, and allergies. Opioid use review Opioid Medications (last 90 days) Some values may be hidden. Unless noted otherwise, only the newest values recorded on each date are displayed. Opioid Medications No data to display. Depression screening Depression Screening PHQ-2 Score PHQ-9 Score 01/07/2022 0 - Depression screening tool completed and reviewed. Based on score and interview, patient is not at risk for depression. Screening tool discussed with patient, and I recommended no further intervention at this time. Time spent in depression screening and assessment: < 5 minutes. Cognitive screening Mini Cog Score: 5 Functional Observation Was the patient's timed Up AND Go test unsteady or ? 12 seconds? No Advance Care Planning Patient did not wish or was not able to name a surrogate decision maker or provide an advance care plan Measurements BP 128/80 Pulse 68 Ht 5' 3.75 (1.62m) Wt 200 lb (90.7kg) SpO2 97% LMP 11/10/2006 BMI 34.61 kg/(m2). VISUAL ACUITY Right 20/20, left 20/25, both 20/20. Additional screenings: No results found. Review of Systems Constitutional: Negative. Respiratory: Negative. Cardiovascular: Negative. Physical Exam Vitals and nursing note reviewed. Constitutional: General: She is awake. She is not in acute distress. Appearance: She is well-developed and well-groomed. She is not ill-appearing, toxic-appearing or diaphoretic. HENT: Head: Normocephalic. Neck: Vascular: No carotid bruit. Cardiovascular: Rate and Rhythm: Normal rate and regular rhythm. Heart sounds: Normal heart sounds. Pulmonary: Effort: Pulmonary effort is normal. No respiratory distress. Breath sounds: Normal breath sounds. Neurological: Mental Status: She is alert. Psychiatric: Behavior: Behavior is cooperative. Assessment/Plan Medicare annual wellness visit, initial (Z00.00) - Counseled on healthy diet and regular exercise - Fall avoidance information provided - Personalized prevention plan provided ASSESSMENT/PLAN: 1. Medicare annual wellness visit, initial - ICD9: V70.0, ICD10: Z00.00 (primary diagnosis) - Counseled on healthy diet and regular exercise - Calcium intake with supplements or by diet of 1000 mg/day for under 50, 1150-1073 mg/day for 50+ - Depression screening tool completed and reviewed with patient. Based on score and interview, patient is not at risk for depression and recommended no further intervention at this time. - Follow up for annual exam in one year - ADVANCE CARE PLAN DISCUSSION - DEPRESSION SCREENING/ASSESSMENT 2. Screening for osteoporosis - ICD9: V82.81, ICD10: Z13.820 - DXA-AXIAL SKELETON 3. Asymptomatic menopause - ICD9: V49.81, ICD10: Z78.0 - DXA-AXIAL SKELETON 4. PHILIPPE on CPAP - ICD9: 327.23, ICD10: G47.33 Stable, benefiting from pap therapy. 5. Obesity, Class I, BMI 30-34.9 - ICD9: 278.00, ICD10: E66.9 Weight decreasing 6. Screening mammogram for breast cancer - ICD9: V76.12, ICD10: Z12.31 - NISSA SCREENING SIS Yap Rosa, APRN.CNP 05/01/2023 10:45 AM Addendum Screening schedule The following prevention plan is recommended: RSV Vaccine(1 - 1-dose 60+ series) Never done Bone Density Screening (more content not included)... Normal [facility] Lab Report: PAP I-G HPV Hi R iskon 04-21-2017 HPV HC,HGH RISK Negative Invalid Interpretation Code Negative [facility] Office Visit: est annualon 1 Documentation of current medications (procedure) Done Invalid Interpretation Code [facility] Documentation of current medications (procedure) T Invalid Interpretation Code [facility] Fall risk assessment No Invalid Interpretation Code [facility] Tobacco smoking status WVIS Never Invalid Interpretation Code [facility] Tobacco use [facility] Never smoker Invalid Interpretation Code [facility] Clinical Lists Update: Prelo software development project manager 03-20-2017 Tobacco smoking status NHIS Never Invalid Interpretation Code [facility] Work Phone: Tobacco use [facility] Never smoker Invalid Interpretation Code [facility] Work Phone: Office Visit: est annualon 0 11-11-2015 Breast Mammogram screening Normal Bilateral Invalid Interpretation Code [facility] Office Visit: est annualon 1 General categories [Interpretation] of Cervical or vaginal smear or scraping by Cyto stain Normal Invalid Interpretation Code [facility] Vital Signs Date Time Vital Sign Value Performing Clinician Facility 04-06-2024 15:04-0400 Diastolic blood pressure 70 mm[Hg] Dayanara Alonzo MD Work Phone: [facility] 04-06-2024 15:04-0400 Systolic blood pressure 138 mm[Hg] Dayanara Alonzo MD Work Phone: [facility] 04-06-2024 13:53-0400 Body mass index (BMI) [Ratio] 34.39 kg/m2 Dayanara Alonzo MD Work Phone: [facility] 04-06-2024 13:53-0400 Body weight 90.17 kg Dayanara Alonzo MD Work Phone: [facility] 04-06-2024 13:53-0400 Heart rate 72 /min Dayanara Alonzo MD Work Phone: [facility] 04-06-2024 13:53-0400 Respiratory rate 14 /min Dayanara Alonzo MD Work Phone: [facility] 05-01-2023 10:32-0400 Body height 161.9 cm Frederick Juan FAMILY SUPPORT WORKER.BISQUE CLEANER Work Phone: [facility] 05-01-2023 10:32-0400 Body weight 90.72 kg Frederick Juan FAMILY SUPPORT WORKER.BISQUE CLEANER Work Phone: [facility] 05-01-2023 10:32-0400 Diastolic blood pressure 80 mm[Hg] Frederick Juan FAMILY SUPPORT WORKER.BISQUE CLEANER Work Phone: [facility] 05-01-2023 10:32-0400 Heart rate 68 /min Frederick Juan FAMILY SUPPORT WORKER.BISQUE CLEANER Work Phone: [facility] 05-01-2023 10:32-0400 SaO2% (BldA) [Mass fraction] 97 % Frederick Juan FAMILY SUPPORT WORKER.BISQUE CLEANER Work Phone: [facility] 05-01-2023 10:32-0400 Systolic blood pressure 128 mm[Hg] Frederick Juan FAMILY SUPPORT WORKER.BISQUE CLEANER Work Phone: [facility] 04-15-2017 07:52-0400 BMI (Body Mass Index) 29.66 kg/m2 Trinity Banerjee NP [facility] 04-15-2017 07:52-0400 Body Temperature 96.5 [degF] Trinity Banerjee NP [facility] 04-15-2017 07:52-0400 Body Temperature 96.49 [degF] Trinity Banerjee NP [facility] 04-15-2017 07:52-0400 BP Diastolic 75 mm[Hg] Trinity Banerjee NP [facility] 04-15-2017 07:52-0400 BP Systolic 130 mm[Hg] Trinity Banerjee NP [facility] 04-15-2017 07:52-0400 Height 166.37 cm Trinity Banerjee NP [facility] 04-15-2017 07:52-0400 Pulse (Heart Rate) 60 /min Trinity Banerjee NP [facility] 04-15-2017 07:52-0400 Respiratory Rate 16 /min Trinity Banrejee NP [facility] 04-15-2017 07:52-0400 Weight 82.1 kg Trinity Banerjee NP [facility] Encounters Encounter Date Encounter Type Care Provider Facility Start: 04-13-2024 End: 04-13-2024 [facility] Start: 04-06-2024 End: 04-06-2024 Office outpatient visit 25 minutes Dayanara Alonzo MD Work Phone: [facility] [place] Comment on above: PHILIPPE on CPAP (Primary Dx); Elevated BP without diagnosis of hypertension; Obesity, Class I, BMI 30-34.9; Encounter for screening examination for other mental health and behavioral disorders; Screening for depression; Encounter for screening mammogram for breast cancer; Screening for lipid disorders; Screening for diabetes mellitus (DM) Start: 04-06-2024 End: 04-06-2024 ambulatory DAYANARA D ANCAAMPAS Facility:[facility] Start: 05-05-2023 Telephone encounter Frederick lehman APRN.BISQUE CLEANER Work Phone: [facility] [place] Comment on above: Results Start: 05-04-2023 End: 05-04-2023 ambulatory DAYANARA D ANCAAMPAS Facility:[facility] Start: 05-04-2023 End: 05-04-2023 Subsequent hospital visit by physician Bone Density [facility] Work Phone: Radiology Comment on above: Screening for osteop orosis [Z13.820] Start: 05-01-2023 End: 05-01-2023 ambulatory FREDERICK MARTINEZ Facility:[facility] Start: 05-01-2023 End: 05-01-2023 Patient encounter procedure Frederick Martinez APRN.BISQUE CLEANER Work Phone: [facility] [place] Comment on above: Medicare annual well ness visit, initial (Primary Dx); Screening for osteoporosis; Asymptomatic menopause; PHILIPPE on CPAP; Obesity, Class I, BMI 30-34.9; Screening mammogram for breast cancer Start: 01-14-2023 ambulatory Dayanara ohara MD Work Phone: [facility] [place] Procedures Date Procedure Procedure Detail Performing Clinician Start: 04-06-2024 Adult depression screening assessment Dayanara Alonzo MD Work Phone: Start: 05-04-2023 Dxa bone density kike dy 1/> sites axial skel Frederick Martinez FAMILY SUPPORT WORKER.BISQUE CLEANER Work Phone: Start: 12-02-2021 Mammography Dayanara helm MD Work Phone: Start: 01-04-2021 Lipid 1996 panel - S prasanth or Plasma Frederick Martinez FAMILY SUPPORT WORKER.BISQUE CLEANER Work Phone: Start: 03-02-2017 End: 04-22-2017 Mammogram, screening Trinity S Ellijay HASHER MACHINE OPERATOR Work Phone: Start: 03-02-2017 Screening mammography Mammogra m yearly screening Trinity Banerjee HASHER MACHINE OPERATOR Start: 02-25-2016 Colonoscopy Dayanara helm MD Work Phone: Plan of Treatment Date Care Activity Detail Author Start: 01-08-2032 Urine microalbumin profile [facility] Start: 02-24-2026 Colonoscopy COLONOSCOPY [facility] Start: 02-24-2026 COLORECTAL CANCER SCREENING COLORECTAL CANCER SCREENING [facility] Start: 02-24-2026 Screening for malign ant neoplasm of colon [facility] Start: 01-04-2026 Lipid 1996 panel - Serum or Plasma Lipid Screening [facility] Start: 01-04-2026 Lipid panel Lipid Screening [facility] Start: 01-04-2026 LIPID SCREEN LIPID SCREEN [facility] Start: 04-06-2025 Anxiety Screening Anxiety Screening [facility] Start: 04-06-2025 Depression Screening Depression Scre ening [facility] Start: 05-05-2024 Mammography Mammogram Screening [facility] Start: 05-05-2024 Screening for malign ant neoplasm of breast Mammogram Screening [facility] Start: 04-06-2024 End: 07-06-2024 Comprehensive metabolic 2000 panel - Serum or Plasma COMPREHENSIVE METABOLIC PANEL Lab Routine Elevated BP without diagnosis of hypertension Obesity, Class I, BMI 30-34.9 Expected: 04/06/2024, Expires: 07/06/2024 [facility] Comment on above: Expected: 04/06/2024 , Expires: 07/06/2024 Start: 04-06-2024 End: 07-06-2024 Lipid 1996 panel - Serum or Plasma LIPID PANEL BASIC Lab Routine Elevated BP without diagnosis of hypertension Obesity, Class I, BMI 30-34.9 Screening for lipid disorders Expected: 04/06/2024, Expires: 07/06/2024 [facility] Comment on above: Expected: 04/06/2024 , Expires: 07/06/2024 Start: 01-05-2024 DIABETES SCREEN DIABETES SCREEN [facility] Start: 01-05-2024 Diabetes Screening Diabetes Screenin g [facility] Start: 12-02-2022 Mammography [facility] Start: 07-13-2022 ADVANCE DIRECTIVE DISCUSSION ADVANCE DIRECTIVE DISCUSSION [facility] Start: 07-13-2022 DEPRESSION ASSESSMENT DEPRESSION ASS ESSMENT [facility] Start: 2021 BONE DENSITY BONE DENSITY [facility] Start: 2021 Bone Density Screening Bone Density Screening [facility] Start: 2021 PNEUMOCOCCAL: 65+ (1 - PCV) PNEUMOCOCCAL: 65+ (1 - PCV) [facility] Start: 04-15-2017 End: 04-15-2017 Appointment Appointment [facility] Start: 03-02-2017 End: 04-22-2017 Mammogram, screening Mammogram, Screening, both breasts [facility] Start: 03-02-2017 End: 03-02-2017 Mammogram, screening Mammogram, Screening, both breasts [facility] Start: 2001 COLOGUARD (FIT-DNA) COLOGUARD (FIT-D NA) [facility] Start: [address] COLONOGRAPHY [facility] Start: 2001 FECAL OCCULT BLOOD FECAL OCCULT BLOO D [facility] Start: 2001 Screening for malign ant neoplasm of colon [facility] Start: 2001 SIGMOIDOSCOPY SIGMOIDOSCOPY [facility] End: 05-06-2025 DBT Breast - bilateral screening NISSA SCREENING W [place] Radiology Routine Encounter for screening mammogram for breast cancer 1 Occurrences starting 04/06/2024 until 05/06/2025 [facility] Work Phone: Comment on above: 1 Occurrences starti ng 04/06/2024 until 05/06/2025 End: 05-30-2024 DXA-AXIAL SKELETON DXA-AXIAL SKELETON Radiology Routine Screening for osteoporosis Asymptomatic menopause 1 Occurrences starting 05/01/2023 until 05/30/2024 [facility] Work Phone: Comment on above: 1 Occurrences starti ng 05/01/2023 until 05/30/2024 End: 02-13-2024 NISSA SCREENING NISSA SCREENING Radiology Routine Encounter for screening mammogram for breast cancer 1 Occurrences starting 01/14/2023 until 02/13/2024 [facility] Work Phone: Comment on above: 1 Occurrences starti ng 01/14/2023 until 02/13/2024 End: 05-30-2024 NISSA SCREENING NISSA SCREENING Radiology Routine Screening mammogram for breast cancer 1 Occurrences starting 05/01/2023 until 05/30/2024 [facility] Work Phone: Comment on above: 1 Occurrences starti ng 05/01/2023 until 05/30/2024 [facility] Immunizations Immunization Date Immunization Notes Care Provider Pedro Luis [facility] 01-07-2022 tetanus toxoid, redu shahriar diphtheria toxoid, and acellular pertussis vaccine, adsorbed Dayanara Alonzo MD Work Phone: [facility] 05-29-2011 tetanus toxoid, redu shahriar diphtheria toxoid, and acellular pertussis vaccine, adsorbed Dayanara Alonzo MD Work Phone: [facility] Payers Date Payer Category Payer Medicare [employer] MEDICARE A ETNA MEDICARE PPO [id number] 2023-Present [phone] [address] [place] [address] PPO [id number] 2023 Medicare [id number] Social History Date Type Detail Facility Start: 04-17-2011 Tobacco smoking stat us WVIS Never smoked tobacco [facility] Work Phone: Start: 04-17-2011 Tobacco use and exposure Smokeless tobacco non-user [facility] Work Phone: Start: 01-07-2022 End: 04-06-2024 Alcohol intake Current drinker of alcohol (finding) [facility] Start: 1955 Sex Assigned At Not on file [facility] Start: 05-01-2023 End: 04-06-2024 Gender identity Not on file [facility] Work Phone: Start: 05-01-2023 End: 04-06-2024 History of Social function [facility] Work Phone: Adult Depression Screening Assessment 0 [facility] Work Phone: Clinical Notes 08-02-2008 to 04-06-2024 Patient InstructionsDayanara Alonzo MD - 04/06/2024 2:31 PM EDTTelephone Encounter - Odalys Rockwell LPN - 05/05/2023 6:42 PM EDTTelephone Encounter - Francine Bruno LPN - 05/05/2023 3:02 PM EDT Note Date & Type Note Facility 04-06-2024 Instructions Dayanara Alonzo MD - 04/06/2024 3:06 PM EDT - I have ordered a 3D mammogram for you, which will be faxed to [facility]. - I have also ordered routine blood work, including a CMP and cholesterol check. This will be a fasting lab, so please do not eat or drink anything except water for 8-12 hours before the test. You do not need to make an appointment for this; you can either schedule an appointment or walk into the lab at your convenience. - If you are considering the Inspire therapy for sleep apnea, please follow up with Dr. Johnson, who initially diagnosed you. He can evaluate if you are a candidate for this therapy and provide guidance on obtaining the appropriate headgear for your CPAP machine. If you do not make any progress with Dr. Johnson, you can consider seeing Dr. Noguera or Lizzie Colbert, our sleep specialists at the clinic. - Monitor your blood pressure at home and report any significant changes or concerns. If you experience headaches, blurry vision, shortness of breath, or chest pain, please seek medical attention immediately. - Continue with your current lifestyle modifications, including participating in Weight [employer], walking two miles daily, and engaging in outdoor activities such as biking and kayaking. - If you have any acute medical issues, please call the main line and request to speak with a nurse. The triage nurse will assess the urgency of your situation and schedule an appointment if needed. documented in this encounter [facility] 04-06-2024 Note HNO ID: [id number] Author: DAYANARA ALONZO MD Service: ? Author Type: Physician Type: Progress Notes Filed: 04/06/2024 15:11 Note Text: This note was created using Planandooter. Subjective Diego Ware is a 68 year old female. Patient presents with: Follow Up SUBJECTIVE: Diego Ware is a 68 year old year old lady here today for follow up appointment for review of medical conditions. The patient is a 68-year-old female with a history of PHILIPPE, presenting for a follow-up visit. The patient has not seen her sleep specialist since her initial diagnosis of PHILIPPE, but continues to use her CPAP machine. She recently acquired a new headset but is interested in exploring the Inspire device due to plans to move to a location without electricity. She reports difficulty with her current CPAP headgear, noting that it shifts during sleep, causing leaks and waking her up. She has tried multiple headgear options without success and is considering alternative treatments. She denies any current symptoms of depression, anxiety, or suicidal ideation. She is active, walking 2 miles daily, biking, and kayaking. She has joined [employer] and is working on weight loss, with a recent weight of 198 lbs. She denies any symptoms of cephalalgia, blurry vision, dyspnea, or chest pain. She has a family history of cardiac issues and HTN. She is also working on advanced directives and plans to designate her as her healthcare power of well testing operator. She sees a international specialist biannually for routine checks. She is due for a colonoscopy in February 2026. Does not have HCDPOA or LW. is her surrogate decision maker. Dermatology--Dr. Milton Walker PAST MEDICAL HISTORY Diagnosis Date PHILIPPE on CPAP Dr. 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 Mask (per patient preference) optional chin strap (if indicated) , filters, tubing, humidifier and lifetime supplies. G47.33 PHILIPPE on CPAP conjugated estrogens (PREMARIN) vaginal cream Use vaginally two times a week. No current facility-administered medications for this visit. Review of Systems Objective BP 140/68 (BP Site: Left Arm, BP Position: Sitting, BP Cuff Size: Large Adult) Pulse 72 Resp 14 Wt 90.2 kg (198 lb 12.8 oz) LMP 11/10/2006 BMI 34.39 kg/m? Last 5 Encounter Wt Readings: Date: Wt: 04/06/2024 90.2 kg (198 lb 12.8 oz) 05/01/2023 90.7 kg (200 lb) 01/07/2022 99.8 kg (220 lb) 01/04/2021 93.4 kg (206 lb) 08/11/2017 83 kg (183 lb) No waist measurement recorded Estimated body mass index is 34.39 kg/m? as calculated from the following: Height as of 05/01/23: 161.9 cm (5' 3.75 ). Weight as of this encounter: 90.2 kg (198 lb 12.8 oz). Last 5 Encounter BP Readings: Date: BP: 04/06/2024 140/68 05/01/2023 128/80 01/07/2022 136/84 01/04/2021 132/72 08/11/2017 130/72 Physical Exam Vitals reviewed. Constitutional: Appearance: Normal appearance. She is well-developed. HENT: Head: Normocephalic and atraumatic. Right Ear: Tympanic membrane, ear canal and external ear normal. Left Ear: Tympanic membrane, ear canal and external ear normal. Nose: Nose normal. Mouth/Throat: Mouth: Mucous membranes are moist. Eyes: Conjunctiva/sclera: Conjunctivae normal. Pupils: Pupils are equal, round, and reactive to light. Neck: Thyroid: No thyromegaly. Vascular: No carotid bruit. Cardiovascular: Rate and Rhythm: Normal rate and regular rhythm. Pulses: Normal pulses. Heart sounds: Normal heart sounds. No murmur heard. No friction rub. No gallop. Pulmonary: Effort: Pulmonary effort is normal. Breath sounds: Normal breath sounds. Abdominal: General: Bowel sounds are normal. There is no distension. Palpations: Abdomen is soft. There is no mass. Tenderness: There is no abdominal tenderness. Musculoskeletal: General: No deformity. Normal range of motion. Right lower leg: No edema. Left lower leg: No edema. Lymphadenopathy: Cervical: No cervical adenopathy. Skin: General: Skin is warm and dry. Coloration: Skin is not jaundiced or pale. Findings: No rash. Neurological: General: No focal deficit present. Mental Status: She is alert and oriented to person, place, and time. Cranial Nerves: No cranial nerve deficit. Sensory: No sensory deficit. Motor: No abnormal muscle tone. Coordination: Coordination normal. Deep Tendon Reflexes: Reflexes normal. Psychiatric: Attention and Perception: Attention and perception normal. Mood and Affect: Mood and affect normal. Speech: Speech normal. Behavior: Behavior normal. Thought Content: Thought content normal. Cognition and Memory: Cognition and memory normal. Judgment: Judgment n (more content not included)... [facility] 04-06-2024 History of Presen t illness Narrative This note was created using [employer]. Subjective Diego Wrae is a 68 year old female. Patient presents with: Follow Up SUBJECTIVE: Diego Ware is a 68 year old year old lady here today for follow up appointment for review of medical conditions. The patient is a 68-year-old female with a history of PHILIPPE, presenting for a follow-up visit. The patient has not seen her sleep specialist since her initial diagnosis of PHILIPPE, but continues to use her CPAP machine. She recently acquired a new headset but is interested in exploring the Inspire device due to plans to move to a location without electricity. She reports difficulty with her current CPAP headgear, noting that it shifts during sleep, causing leaks and waking her up. She has tried multiple headgear options without success and is considering alternative treatments. She denies any current symptoms of depression, anxiety, or suicidal ideation. She is active, walking 2 miles daily, biking, and kayaking. She has joined [employer] and is working on weight loss, with a recent weight of 198 lbs. She denies any symptoms of cephalalgia, blurry vision, dyspnea, or chest pain. She has a family history of cardiac issues and HTN. She is also working on advanced directives and plans to designate her as her healthcare power of well testing operator. She sees a international specialist biannually for routine checks. She is due for a colonoscopy in February 2026. Does not have HCDPOA or LW. is her surrogate decision maker. Dermatology--Dr. Milton Walker PAST MEDICAL HISTORY Diagnosis Date PHILIPPE on CPAP Dr. 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 Mask (per patient preference) optional chin strap (if indicated) , filters, tubing, humidifier and lifetime supplies. G47.33 PHILIPPE on CPAP conjugated estrogens (PREMARIN) vaginal cream Use vaginally two times a week. No current facility-administered medications for this visit. Review of Systems Objective BP 140/68 (BP Site: Left Arm, BP Position: Sitting, BP Cuff Size: Large Adult) Pulse 72 Resp 14 Wt 90.2 kg (198 lb 12.8 oz) LMP 11/10/2006 BMI 34.39 kg/m Last 5 Encounter Wt Readings: Date: Wt: 04/06/2024 90.2 kg (198 lb 12.8 oz) 05/01/2023 90.7 kg (200 lb) 01/07/2022 99.8 kg (220 lb) 01/04/2021 93.4 kg (206 lb) 08/11/2017 83 kg (183 lb) No waist measurement recorded Estimated body mass index is 34.39 kg/m as calculated from the following: Height as of 05/01/23: 161.9 cm (5' 3.75 ). Weight as of this encounter: 90.2 kg (198 lb 12.8 oz). Last 5 Encounter BP Readings: Date: BP: 04/06/2024 140/68 05/01/2023 128/80 01/07/2022 136/84 01/04/2021 132/72 08/11/2017 130/72 Physical Exam Vitals reviewed. Constitutional: Appearance: Normal appearance. She is well-developed. HENT: Head: Normocephalic and atraumatic. Right Ear: Tympanic membrane, ear canal and external ear normal. Left Ear: Tympanic membrane, ear canal and external ear normal. Nose: Nose normal. Mouth/Throat: Mouth: Mucous membranes are moist. Eyes: Conjunctiva/sclera: Conjunctivae normal. Pupils: Pupils are equal, round, and reactive to light. Neck: Thyroid: No thyromegaly. Vascular: No carotid bruit. Cardiovascular: Rate and Rhythm: Normal rate and regular rhythm. Pulses: Normal pulses. Heart sounds: Normal heart sounds. No murmur heard. No friction rub. No gallop. Pulmonary: Effort: Pulmonary effort is normal. Breath sounds: Normal breath sounds. Abdominal: General: Bowel sounds are normal. There is no distension. Palpations: Abdomen is soft. There is no mass. Tenderness: There is no abdominal tenderness. Musculoskeletal: General: No deformity. Normal range of motion. Right lower leg: No edema. Left lower leg: No edema. Lymphadenopathy: Cervical: No cervical adenopathy. Skin: General: Skin is warm and dry. Coloration: Skin is not jaundiced or pale. Findings: No rash. Neurological: General: No focal deficit present. Mental Status: She is alert and oriented to person, place, and time. Cranial Nerves: No cranial nerve deficit. Sensory: No sensory deficit. Motor: No abnormal muscle tone. Coordination: Coordination normal. Deep Tendon Reflexes: Reflexes normal. Psychiatric: Attention and Perception: Attention and perception normal. Mood and Affect: Mood and affect normal. Speech: Speech normal. Behavior: Behavior normal. Thought Content: Thought content normal. Cognition and Memory: Cognition and memory normal. Judgment: Judgment normal. Latest Ref Rng 01/04/2021 Protein, Total 6.3 - 8.0 g/dL 7.0 Albumin 3.9 - 4.9 g/dL 4.2 Calcium 8.5 - 10.2 mg/dL 9.7 Bilirubin, Total 0.2 - 1.3 mg/dL 0.3 Alkaline Phosphatase 34 - 123 U/L 102 AST 13 - 35 U/L 17 Glucose 74 - 99 mg/dL 88 BUN 7 - 21 mg/dL 19 Creatinine 0.58 - 0.96 mg/dL 0.74 Sodium 136 - 144 mmol/L 142 Potassium 3.7 - 5.1 mmol/L 4.4 Chloride 97 - 105 mmol/L 108 (H) CO2 22 - 30 mmol/L 27 Anion Gap 9 - 18 mmol/L 7 (L) ALT 7 - 38 U/L 12 eGFR- >60 eGFR-All Other Races . >60 WBC 3.70 - 11.00 k/uL 7.24 RBC 3.90 - 5.20 m/uL 4.56 Hemoglobin 11.5 - 15.5 g/dL 14.3 Hematocrit 36.0 - 46.0 % 44.1 MCV 80.0 - 100.0 fL 96.7 MCH 26.0 - 34.0 pG 31.4 MCHC 30.5 - 36.0 g/dL 32.4 RDW-CV 11.5 - 15.0 % 13.6 Platelet Count 150 - 400 k/uL 254 MPV 9.0 - 12.7 fL 10.6 Absolute nRBC <0.01 k/uL <0.01 Total Cholesterol, Nonfasting <200 mg/dL 175 Triglycerides, Nonfasting <150 mg/dL 157 (H) HDL Cholesterol, Nonfasting >39 mg/dL 37 (L) LDL Cholesterol, Nonfasting <100 mg/dL 107 (H) Non HDL Cholesterol, Nonfasting <130 mg/dL 138 (H) VLDL Cholesterol, Nonfasting <30 mg/dL 31 (H) Total Chol/HDL Ratio, Nonfasting <5.10 mg/dL 4.73 LDL/HDL Ratio, Nonfasting <2.54 mg/dL 2.89 (H) Legend: (H) High (L) Low Assessment and Plan # PHILIPPE on CPAP (G47.33) - Discussed current CPAP use and issues with headgear; advised to consult Dr. Johnson for evaluation and potential candidacy for Inspire therapy. - Provided information on alternative sleep medicine specialists within the clinic, including Dr. Noguera and Lizzie Colbert, if needed. # Elevated BP without diagnosis of hypertension (R03.0) - Blood pressure readings today were initially elevated but improved with relaxation techniques to 130/70 mmHg. - Advised home monitoring of blood pressure; patient has equipment available. - No symptoms such as headaches, blurry vision, shortness of breath, or chest pain reported. # Obesity, Class I, BMI 30-34.9 (E66.9) - Current weight trending down; patient actively participating in [employer] and engaging in regular physical activity, including walking two miles daily. - Encouraged continuation of current weight management efforts. # Encounter for screening examination for other mental health and behavioral disorders (Z13.39) # Screening for depression (Z13.31) - No signs of depression or anxiety noted during screening. # Encounter for screening mammogram for breast cancer (Z12.31) - Ordered 3D mammogram; faxed order to [facility]. # Screening for lipid disorders (Z13.220) # Screening for diabetes mellitus (DM) (Z13.1) - Ordered comprehensive metabolic panel and lipid panel; instructed patient to complete fasting labs at the clinic lab. - Reviewed previous lab results from 2020 showing LDL 107 mg/dL, triglycerides 157 mg/dL, HDL 37 mg/dL; discussed goals for lipid levels. I spent a total of 35 minutes on the date of the service which included [id number] patient care, completing clinical documentation, obtaining and/or reviewing separately obtained history, performing a medically appropriate examination, counseling and educating the patient/family/caregiver, and ordering medications, tests, or procedures. Dayanara Alonzo MD documented in this encounter [facility] 05-05-2023 Miscellaneous Notes Patient aware of results and provider recommendations for follow up. Odalys Rockwell LPN LEFT MESSAGE FOR PATIENT TO CALL OFFICE. Bone density showed osteopenia so the start of bone weakening but not severe enough progressed to be osteoporosis. To keep bones strong aim to take around 1200 mg of Calcium per day or drink two glasses of milk. If you eat a lot of calcium dante foods, but don't drink milk, you may decrease to 600 mg daily. Try to do strength training (light weights) exercise at least 2-3 times weekly. documented in this encounter [facility] 05-04-2023 History of Presen t illness Narrative Radiology Service Progress Note PATIENT NAME: Diego Ware DATE OF SERVICE: May 04, 2023 TIME: 12:55 PM PATIENT IDENTITY VERIFICATION COMPLETED USING TWO (2) IDENTIFIERS: Name and Date of confirmed by patient verbally. FALL SCREENING: Has the patient had 2 falls in the last year or 1 fall with injury or currently using an Ambulatory Assistive Device (Walker, Cane, Wheelchair, Crutches, etc.)? No PATIENT GENDER DATA: Female. status: : No status: NO. PATIENT RELEVANT IMPLANT DATA REVIEWED: Not Applicable RADIOLOGY DEPARTMENT: Bone Density PERIPHERAL IV DATA: Not applicable SIGNED BY: RT Klarissa(R) May 04, 2023 12:55 PM documented in this encounter [facility] 05-04-2023 Note HNO ID: [id number] Author: Nilton Martinez RT(Ac) Service: ? Author Type: Technologist Type: Progress Notes Filed: 05/04/2023 1:14 PM Note Text: Radiology Service Progress Note PATIENT NAME: Diego Ware DATE OF SERVICE: May 04, 2023 TIME: 12:55 PM PATIENT IDENTITY VERIFICATION COMPLETED USING TWO (2) IDENTIFIERS: Name and Date of confirmed by patient verbally. FALL SCREENING: Has the patient had 2 falls in the last year or 1 fall with injury or currently using an Ambulatory Assistive Device (Walker, Cane, Wheelchair, Crutches, etc.)? No PATIENT GENDER DATA: Female. status: : No status: NO. PATIENT RELEVANT IMPLANT DATA REVIEWED: Not Applicable RADIOLOGY DEPARTMENT: Bone Density PERIPHERAL IV DATA: Not applicable SIGNED BY: RT Klarissa(R) May 04, 2023 12:55 PM [facility] 05-01-2023 Note HNO ID: [id number] Author: Frederick Martinez APRN.BISQUE CLEANER Service: ? Author Type: Nurse Practitioner Type: Progress Notes Filed: 05/01/2023 11:29 AM Note Text: Diego Ware is a 67 year old female here for a Medicare wellness visit. Prior bone density in 2013. Overall feeling pretty great. Sleep apnea with CPAP, using nightly, benefiting. Medicare Health Risk Assessment General Health Overall pretty good. Exercise: Minutes/Day Walks 3.5 mils a morning 60-90 minutes a day Exercise: Days/Week Min 5-6 days Alcohol: Daily Use Not daily Alcohol: Drinks/Day Glass or 2 every other week Alcohol: 6 or more drinks no Feel off balance No, no falls Concerns: Teeth/Dentures no Concerns: Sexual function no Troubled by feelings no Frequency: Eating healthy diet Eating healthy ADLs requiring help no Safety precautions in home/vehicle Smoke alarms and wears seat belt Smoke, vape, chews tobacco no Difficulty hearing Hearing aides Difficulty seeing No, follows with ophthalmology Current Providers Specialists: I have reviewed specialist-related care of the patient in the medical record. Outside specialists seen: dentist and eye doctor Dermatology Medical/Family history review Reviewed and updated problem list, medical/surgical/family/social history, medications, and allergies. Opioid use review Opioid Medications (last 90 days) Some values may be hidden. Unless noted otherwise, only the newest values recorded on each date are displayed. Opioid Medications No data to display. Depression screening Depression Screening PHQ-2 Score PHQ-9 Score 01/07/2022 0 - Depression screening tool completed and reviewed. Based on score and interview, patient is not at risk for depression. Screening tool discussed with patient, and I recommended no further intervention at this time. Time spent in depression screening and assessment: < 5 minutes. Cognitive screening Mini Cog Score: 5 Functional Observation Was the patient's timed Up AND Go test unsteady or ? 12 seconds? No Advance Care Planning Patient did not wish or was not able to name a surrogate decision maker or provide an advance care plan Measurements BP 128/80 Pulse 68 Ht 5' 3.75 (1.62m) Wt 200 lb (90.7kg) SpO2 97% LMP 11/10/2006 BMI 34.61 kg/(m2). VISUAL ACUITY Right 20/20, left 20/25, both 20/20. Additional screenings: No results found. Review of Systems Constitutional: Negative. Respiratory: Negative. Cardiovascular: Negative. Physical Exam Vitals and nursing note reviewed. Constitutional: General: She is awake. She is not in acute distress. Appearance: She is well-developed and well-groomed. She is not ill-appearing, toxic-appearing or diaphoretic. HENT: Head: Normocephalic. Neck: Vascular: No carotid bruit. Cardiovascular: Rate and Rhythm: Normal rate and regular rhythm. Heart sounds: Normal heart sounds. Pulmonary: Effort: Pulmonary effort is normal. No respiratory distress. Breath sounds: Normal breath sounds. Neurological: Mental Status: She is alert. Psychiatric: Behavior: Behavior is cooperative. Assessment/Plan Medicare annual wellness visit, initial () - Counseled on healthy diet and regular exercise - Fall avoidance information provided - Personalized prevention plan provided ASSESSMENT/PLAN: 1. Medicare annual wellness visit, initial - ICD9: V70.0, ICD10: Z00.00 (primary diagnosis) - Counseled on healthy diet and regular exercise - Calcium intake with supplements or by diet of 1000 mg/day for under 50, 4917-0019 mg/day for 50+ - Depression screening tool completed and reviewed with patient. Based on score and interview, patient is not at risk for depression and recommended no further intervention at this time. - Follow up for annual exam in one year - ADVANCE CARE PLAN DISCUSSION - DEPRESSION SCREENING/ASSESSMENT 2. Screening for osteoporosis - ICD9: V82.81, ICD10: Z13.820 - DXA-AXIAL SKELETON 3. Asymptomatic menopause - ICD9: V49.81, ICD10: Z78.0 - DXA-AXIAL SKELETON 4. PHILIPPE on CPAP - ICD9: 327.23, ICD10: G47.33 Stable, benefiting from pap therapy. 5. Obesity, Class I, BMI 30-34.9 - ICD9: 278.00, ICD10: E66.9 Weight decreasing 6. Screening mammogram for breast cancer - ICD9: V76.12, ICD10: Z12.31 - NISSA SCREENING Frederick Martinez APRN.MURALI [facility] 05-01-2023 History of Presen t illness Narrative Diego Ware is a 67 year old female here for a Medicare wellness visit. Prior bone density in 2013. Overall feeling pretty great. Sleep apnea with CPAP, using nightly, benefiting. Medicare Health Risk Assessment General Health Overall pretty good. Exercise: Minutes/Day Walks 3.5 mils a morning 60-90 minutes a day Exercise: Days/Week Min 5-6 days Alcohol: Daily Use Not daily Alcohol: Drinks/Day Glass or 2 every other week Alcohol: 6 or more drinks no Feel off balance No, no falls Concerns: Teeth/Dentures no Concerns: Sexual function no Troubled by feelings no Frequency: Eating healthy diet Eating healthy ADLs requiring help no Safety precautions in home/vehicle Smoke alarms and wears seat belt Smoke, vape, chews tobacco no Difficulty hearing Hearing aides Difficulty seeing No, follows with ophthalmology Current Providers Specialists: I have reviewed specialist-related care of the patient in the medical record. Outside specialists seen: dentist and eye doctor Dermatology Medical/Family history review Reviewed and updated problem list, medical/surgical/family/social history, medications, and allergies. Opioid use review Opioid Medications (last 90 days) Some values may be hidden. Unless noted otherwise, only the newest values recorded on each date are displayed. Opioid Medications No data to display. Depression screening Depression Screening PHQ-2 Score PHQ-9 Score 01/07/2022 0 - Depression screening tool completed and reviewed. Based on score and interview, patient is not at risk for depression. Screening tool discussed with patient, and I recommended no further intervention at this time. Time spent in depression screening and assessment: < 5 minutes. Cognitive screening Mini Cog Score: 5 Functional Observation Was the patient's timed Up & Go test unsteady or ? 12 seconds? No Advance Care Planning Patient did not wish or was not able to name a surrogate decision maker or provide an advance care plan Measurements BP 128/80 Pulse 68 Ht 5' 3.75 (1.62m) Wt 200 lb (90.7kg) SpO2 97% LMP 11/10/2006 BMI 34.61 kg/(m^2). VISUAL ACUITY Right 20/20, left 20/25, both 20/20. Additional screenings: No results found. Review of Systems Constitutional: Negative. Respiratory: Negative. Cardiovascular: Negative. Physical Exam Vitals and nursing note reviewed. Constitutional: General: She is awake. She is not in acute distress. Appearance: She is well-developed and well-groomed. She is not ill-appearing, toxic-appearing or diaphoretic. HENT: Head: Normocephalic. Neck: Vascular: No carotid bruit. Cardiovascular: Rate and Rhythm: Normal rate and regular rhythm. Heart sounds: Normal heart sounds. Pulmonary: Effort: Pulmonary effort is normal. No respiratory distress. Breath sounds: Normal breath sounds. Neurological: Mental Status: She is alert. Psychiatric: Behavior: Behavior is cooperative. Assessment/Plan Medicare annual wellness visit, initial (00.) - Counseled on healthy diet and regular exercise - Fall avoidance information provided - Personalized prevention plan provided ASSESSMENT/PLAN: 1. Medicare annual wellness visit, initial - ICD9: V70.0, ICD10: Z00.00 (primary diagnosis) - Counseled on healthy diet and regular exercise - Calcium intake with supplements or by diet of 1000 mg/day for under 50, 1284-0570 mg/day for 50+ - Depression screening tool completed and reviewed with patient. Based on score and interview, patient is not at risk for depression and recommended no further intervention at this time. - Follow up for annual exam in one year - ADVANCE CARE PLAN DISCUSSION - DEPRESSION SCREENING/ASSESSMENT 2. Screening for osteoporosis - ICD9: V82.81, ICD10: Z13.820 - DXA-AXIAL SKELETON 3. Asymptomatic menopause - ICD9: V49.81, ICD10: Z78.0 - DXA-AXIAL SKELETON 4. PHILIPPE on CPAP - ICD9: 327.23, ICD10: G47.33 Stable, benefiting from pap therapy. 5. Obesity, Class I, BMI 30-34.9 - ICD9: 278.00, ICD10: E66.9 Weight decreasing 6. Screening mammogram for breast cancer - ICD9: V76.12, ICD10: Z12.31 - NISSA SCREENING Frederick Martinez APRN.MURALI documented in this encounter [facility] 05-01-2023 Instructions Frederick Martinez APRN.BISQUE CLEANER - 05/01/2023 10:40 AM EDT Screening schedule The following prevention plan is recommended: RSV Vaccine(1 - 1-dose 60+ series) Never done Bone Density Screening due on 2021 Pneumococcal Vaccine: 65+(1 - PCV) Never done Advance Directive Discussion due on 07/13/2022 Depression Assessment Never done Mammogram Screening due on 12/02/2022 WHAT YOU CAN DO TO PREVENT FALLS Many falls can be prevented. By making some changes, you can lower your chances of falling. Four things YOU can do to prevent falls for you* and your caregiver 1. Begin a regular exercise program Exercise is one of the most important ways to lower your chances of falling. It makes you stronger and helps you feel better. Exercises that improve balance and coordination (like Barrera Chi) are the most helpful. Lack of exercise leads to weakness and increases your chances of falling. Ask your doctor or health care provider about the best type of exercise program for you. 2. Have your health care provider review your medicines Have your doctor or pharmacist review all the medicines you take, even [id number] medicines. As you get older, the way medicines work in your body can change. Some medicines, or combinations of medicines, can make you sleepy or dizzy and can cause you to fall. 3. Have your vision checked Have your eyes checked by an eye doctor at least once a year. You may be wearing the wrong glasses or have a condition like glaucoma or cataracts that limits your vision. Poor vision can increase your chances of falling. 4. Make your home safer About half of all falls happen at home. To make your home safer: Remove things you can trip over (like papers, books, clothes, and shoes) from stairs and places where you walk. Remove small throw rugs or use double-sided tape to keep the rugs from slipping. Keep items you use often in cabinets you can reach easily without using a step stool. Have grab bars put in next to your toilet and in the tub or shower. Use non-slip mats in the bathtub and on shower floors. Improve the lighting in your home. As you get older, you need brighter lights to see well. Hang light-weight curtains or shades to reduce glare. Have handrails and lights put in on all staircases. Wear shoes both inside and outside the house. Avoid going barefoot or wearing slippers. For more information, contact: Centers for Disease Control and Prevention www.cdc.gov/injury * This information may not apply if you have certain medical conditions. BONE MINERAL DENSITY PATIENT INSTRUCTIONS Bone mineral density testing measures the amount of calcium in certain parts of your bones. This information determines how strong your bones are. The test is used to detect osteoporosis, a disease in which the bone's mineral content and density are low, increasing a person's risk of fractures. The lumbar spine (lower back) and the hip are the skeletal sites usually examined. For the test, remember that: 1. You cannot take this test if you are . 2. Eat a normal diet on the day of the test. 3. Take your medications as you normally would. 4. DO NOT take calcium supplements (such as Tums) for 24 hours before the test. 5. On the day of the test, leave valuables (jewelry or credit cards) at home. 6. The test should be performed prior to oral, rectal or IV contrast studies, or at least 7 days after any of these studies. For the test, you may be asked to wear a hospital gown. You will lie on your back, on a padded table, in a comfortable position. Generally, you can resume your usual activities immediately. documented in this encounter [facility] 05-01-2023 Nurse Note VISUAL ACUITY: Today's exam: Vision Correction? Glasses: RIGHT EYE: 20/20 LEFT EYE: 20/ 25 BOTH EYES: 20/20 documented in this encounter [facility] 08-02-2008 History of Past i llness Narrative Problem Noted Date Diagnosed Date Resolved Date H/O BCC'S BACK///MALIG NEOPLASM SKIN TRUNK 08/02/2008 09/12/2014 Neoplasm of uncertain behavior of skin 06/06/2008 09/12/2014 Actinic keratosis 06/06/2008 09/12/2014 Other chronic dermatitis due to solar radiation 06/06/2008 09/12/2014 Other seborrheic keratosis 06/06/2008 0 09/12/2014 Scar condition and fibrosis of skin 06/06/2008 09/12/2014 H/O BCC'S////PERS HX SKIN MALIGNANCY NEC 06/06/2008 09/12/2014 documented as of this encounter (statuses as of 01/19/2023) [facility] History of Past illness Narrative* Problem Noted Date Diagnosed Date Resolved Date H/O BCC'S BACK///MALIG NEOPLASM SKIN TRUNK 08/02/2008 09/12/2014 Neoplasm of uncertain behavior of skin 06/06/2008 09/12/2014 Actinic keratosis 06/06/2008 09/12/2014 Other chronic dermatitis due to solar radiation 06/06/2008 09/12/2014 Other seborrheic keratosis 06/06/2008 0 09/12/2014 Scar condition and fibrosis of skin 06/06/2008 09/12/2014 H/O BCC'S////PERS HX SKIN MALIGNANCY NEC 06/06/2008 09/12/2014 documented as of this encounter (statuses as of 05/01/2023) [facility] History of Past illness Narrative* Problem Noted Date Diagnosed Date Resolved Date H/O BCC'S BACK///MALIG NEOPLASM SKIN TRUNK 08/02/2008 09/12/2014 Neoplasm of uncertain behavior of skin 06/06/2008 09/12/2014 Actinic keratosis 06/06/2008 09/12/2014 Other chronic dermatitis due to solar radiation 06/06/2008 09/12/2014 Other seborrheic keratosis 06/06/2008 0 09/12/2014 Scar condition and fibrosis of skin 06/06/2008 09/12/2014 H/O BCC'S////PERS HX SKIN MALIGNANCY NEC 06/06/2008 09/12/2014 documented as of this encounter (statuses as of 05/06/2023) [facility] History of Past illness Narrative* Problem Noted Date Diagnosed Date Resolved Date H/O BCC'S BACK///MALIG NEOPLASM SKIN TRUNK 08/02/2008 09/12/2014 Neoplasm of uncertain behavior of skin 06/06/2008 09/12/2014 Actinic keratosis 06/06/2008 09/12/2014 Other chronic dermatitis due to solar radiation 06/06/2008 09/12/2014 Other seborrheic keratosis 06/06/2008 0 09/12/2014 Scar condition and fibrosis of skin 06/06/2008 09/12/2014 H/O BCC'S////PERS HX SKIN MALIGNANCY NEC 06/06/2008 09/12/2014 documented as of this encounter (statuses as of 05/17/2023) [facility] note* Diagnosis Encounter for screening mammogram for breast cancer documented in this encounter [facility] note* Diagnosis Medicare annual wellness visit, initial- Primary Routine general medical examination at a health care facility Screening for osteoporosis Special screening for osteoporosis Asymptomatic menopause PHILIPPE on CPAP Obstructive sleep apnea (adult) (pediatric) Obesity, Class I, BMI 30-34.9 Obesity, unspecified Screening mammogram for breast cancer documented in this encounter [facility] note* Diagnosis Screening for osteoporosis Special screening for osteoporosis Asymptomatic menopause documented in this encounter [facility] note* Diagnosis PHILIPPE on CPAP- Primary Obstructive sleep apnea (adult) (pediatric) Elevated BP without diagnosis of hypertension Obesity, Class I, BMI 30-34.9 Obesity, unspecified Encounter for screening examination for other mental health and behavioral disorders Screening for depression Encounter for screening mammogram for breast cancer Screening for lipid disorders Screening for diabetes mellitus (DM) Screening for diabetes mellitus documented in this encounter [facility] for referral (narrative)* Diagnostic Procedure Only (Routine) - Pending Review Specialty Diagnoses / Procedures Referred By Chilo t Referred To Contact [facility] Diagnoses Encounter for screening mammogram for breast cancer Procedures NISSA SCREENING SCREENING MAMMOGRAPHY BI 2-VIEW BREAST INC CAD Dayanara Alonzo MD [address] [place] [address] [facility] [address] [place] [address] Referral ID Status Reason Start Date Expiration Date Visits Requested Visits Authorized [id number] Pending Review Auto-Generat ed Referral 01/14/2023 02/13/2024 1 1 [facility] for referral (narrative)* Diagnostic Procedure Only (Routine) - Pending Review Specialty Diagnoses / Procedures Referred By Contbuffy espana Referred To Contact [facility] Diagnoses Screening mammogram for breast cancer Procedures NISSA SCREENING SCREENING MAMMOGRAPHY BI 2-VIEW BREAST INC Frederick Laureano APRN.CNP [address] [place] [address] [facility] [address] [place] [address] Referral ID Status Reason Start Date Expiration Date Visits Requested Visits Authorized [id number] Pending Review Auto-Generat ed Referral 3 05/30/2024 1 1 [facility] for referral (narrative)* Diagnostic Procedure Only (Routine) - New Request Specialty Diagnoses / Procedures Referred By Chilo espana Referred To Contact [facility] Diagnoses Encounter for screening mammogram for breast cancer Procedures NISSA SCREENING W FATOUMATA SCREENING DIGITAL BREAST TOMOSYNTHESIS BI SCREENING MAMMOGRAPHY BI 2-VIEW BREAST INC Dayanara Brink MD [facility] [place] [id number] [facility] [address] [place] [address] Referral ID Status Reason Start Date Expiration Date Visits Requested Visits Authorized [id number] New Request Auto-Generat ed Referral 04/06/2024 05/06/2025 1 1 [facility] Summary Purpose Family History No Family History Records Found Advance Directives No Advanced Directives Records Found Additional Source Comments Source Comments (unrecognize d section and content) In the event this informatio n is protected by the Federal Confidentiality of Alcohol and Drug Abuse Patient Records regulations: The Federal rules restrict any use of the information to criminally investigate or prosecute any alcohol or drug abuse patient.[facility] the event this information is protected by the Federal Confidentiality of Alcohol and Drug Abuse Patient Records regulations: The Federal rules restrict any use of the information to criminally investigate or prosecute any alcohol or drug abuse patient.[facility] the event this information is protected by the Federal Confidentiality of Alcohol and Drug Abuse Patient Records regulations: The Federal rules restrict any use of the information to criminally investigate or prosecute any alcohol or drug abuse patient.[facility] the event this information is protected by the Federal Confidentiality of Alcohol and Drug Abuse Patient Records regulations: The Federal rules restrict any use of the information to criminally investigate or prosecute any alcohol or drug abuse patient.[facility] the event this information is protected by the Federal Confidentiality of Alcohol and Drug Abuse Patient Records regulations: The Federal rules restrict any use of the information to criminally investigate or prosecute any alcohol or drug abuse patient.[facility] Care Teams (unrecognized sec tion and content) Healthcare Customer Service Relationship Specialty Start Date End Date Dayanara Alonzo MD [address] [place], [place] [id number] PCP - General Internal Medicine 08/11/17 Healthcare Customer Service Relationship Specialty Start Date End Date Dayanara Alonzo MD [address] [place], [place] [phone] PCP - General Internal Medicine 08/11/17 Healthcare Customer Service Relationship Specialty Start Date End Date Dayanara Alonzo MD [address] [place], [place] [id number] PCP - General Internal Medicine 08/11/17 Healthcare Customer Service Relationship Specialty Start Date End Date Dayanara Alonzo MD [address] [place], [place] [phone] PCP - General Internal Medicine 08/11/17 Reason for Visit (unrecogniz ed section and content) Reason Comments Medicare Wellness Exam Reason Comments Results Reason Comments Follow Up INFORMATION SOURCE (unrecogn ized section and content) DATE CREATED AUTHOR 04/14/2024 [facility] FOR RECORDS PERTAINING TO PATIENTS WHO ARE OR HAVE BEEN ENROLLED IN A CHEMICAL DEPENDENCY/SUBSTANCEABUSE PROGRAM, SOME INFORMATION MAY BE OMITTED. This clinical summary was aggregated from multiple sources. Caution should be exercised in using it in the provision of clinical care. This summary normalizes information from multiple sources, and as a consequence, information in this document may materially change the coding, format and clinical context of patient data. In addition, data may be omitted in some cases. CLINICAL DECISIONS SHOULD BE BASED ON THE PRIMARY CLINICAL RECORDS. [facility] [employer] [facility]. provides no warranty or guarantee of the accuracy or completeness of information in this document.
== END | disposition home or self-care (01) ==
LOC: OPBI 10:06
PROVIDERS: PCP Internal Medicine; Referring Provider Nurse Practitioner Women's Health; Visit Provider Nurse Practitioner Women's Health
DX: Z12.31 Encounter for screening mammogram for malignant neoplasm of breast (principal); Z80.3 Family history of malignant neoplasm of breast
CPT/HCPCS: 77063; 77067

== ENCOUNTER → 2025-05-10 | Outpatient (CLI) | payer MEDICARE, SELFPAY ==
--- NOTE | 2025-05-10 08:45 | BI_ITS ---
EXAM: BI/SCRN MAMM (CAD)W/FATOUMATA BILAT
== END | disposition home or self-care (01) ==
LOC: OPBI 08:37
PROVIDERS: PCP Internal Medicine; Referring Provider Nurse Practitioner Women's Health; Visit Provider Nurse Practitioner Women's Health
DX: Z12.31 Encounter for screening mammogram for malignant neoplasm of breast (principal); Z80.3 Family history of malignant neoplasm of breast
CPT/HCPCS: 77063; 77067